=== PATIENT | male | born 1995 | race Caucasian/White ===

== ENCOUNTER 2020-10-31 12:55 | Emergency (ER) | payer OTHER, SELFPAY ==
[2020-10-31 13:53] VITALS: BP 116/63; PULSE 64; RESP 16; TEMP 36.8; O2SAT 98; BMI 29.2
[2020-10-31 15:04] LABS: COVID19 -Nasal RAPID Negative (Negative)
--- NOTE | 2020-10-31 15:11 | ED_ITS ---
HPI - Recheck/Abnormal Lab/Rx <Stephani Long PA-C - Last Filed: 11/04/20 09:09> General Chief Complaint: Recheck/Abnormal Lab/Rx Stated Complaint: Possible Exp to COVID, Wants Test, No Symptoms Time Seen by Provider: 10/31/20 14:00 Source: patient Mode of arrival: Ambulatory Limitations: no limitations History of Present Illness HPI narrative: 25 yo M presents to ED for COVID testing. States he was hanging out with some friends 5 days ago and recently found out that one of their associates tested positive for COVID. They are also getting tested but have no symptoms. He states he came to the ED because he thought it would be faster than testing at the drug store. He denies any symptoms including headaches, sore throat, cough, shortness of breath, N/V/D, fevers, chills, loss of sense or taste or smell. He states he has been in his normal state of health. Review of Systems <Stephani Long PA-C - Last Filed: 11/04/20 09:09> Review of Systems ROS Unobtainable: All systems reviewed & are unremarkable except as noted in HPI and below Patient History <Stephani Long PA-C - Last Filed: 11/04/20 09:09> Social History Smoking Status: Never smoker Smoking Status: Never smoker alcohol intake frequency: 0-2 drinks per day Substance Use Type: does not use Exam <Stephani Long PA-C - Last Filed: 11/04/20 09:09> Narrative Exam Narrative: GENERAL: [25] year old patient appears stated age. Well-nourished, well- developed patient, in no apparent distress. HEAD: Atraumatic. Normocephalic. EYES: Pupils equal round and reactive. Extraocular motions intact. No scleral icterus. No injection or drainage. ENT: Nose without bleeding, purulent drainage. Throat without erythema, tonsillar hypertrophy or exudate. Airway patent. No lymphadenopathy. NECK: Trachea midline. Non tender CARDIOVASCULAR: Regular rate and rhythm without murmurs, gallops, or rubs. RESPIRATORY: Clear to auscultation. Breath sounds equal bilaterally. No wheezes, rales, or rhonchi. EXTREMITIES: Normal active ROM all 4 extremities. NEURO: AOx3. SKIN: No rash or erythema of visible areas Initial Vital Signs Initial Vital Signs: Vital Signs Temperature 98.2 F 10/31/20 13:53 Pulse Rate 64 10/31/20 13:53 Respiratory Rate 16 10/31/20 13:53 Blood Pressure 116/63 10/31/20 13:53 Pulse Oximetry 98 10/31/20 13:53 <Bruce Rice DO - Last Filed: 11/04/20 13:23> Initial Vital Signs Initial Vital Signs: Vital Signs Temperature 98.2 F 10/31/20 13:53 Pulse Rate 64 10/31/20 13:53 Respiratory Rate 16 10/31/20 13:53 Blood Pressure 116/63 10/31/20 13:53 Pulse Oximetry 98 10/31/20 13:53 Course <Stephani Long PA-C - Last Filed: 11/04/20 09:09> Orders Ordered: ED Orders 10/31/20 13:58 COVID19 -Nasal swab/Pre-Proc Stat Vital Signs Vital signs: Vital Signs - 8 hr 10/31/20 13:53 10/31/20 15:17 Temperature 98.2 F Pulse Rate 64 65 Respiratory Rate 16 16 Blood Pressure 116/63 114/62 Pulse Oximetry 98 99 <DO Marcos Mead Last Filed: 11/04/20 13:23> Orders Ordered: ED Orders 10/31/20 13:58 COVID19 -Nasal swab/Pre-Proc Stat Vital Signs Vital signs: Vital Signs - 8 hr 10/31/20 13:53 10/31/20 15:17 Temperature 98.2 F Pulse Rate 64 65 Respiratory Rate 16 16 Blood Pressure 116/63 114/62 Pulse Oximetry 98 99 MDM - Recheck/Abnormal Lab/Rx <Stephani Long PA-C - Last Filed: 11/04/20 09:09> Differential Diagnosis Differential diagnosis: Likely other (encounter for COVID test, possible exposure to COVID, asymptomatic) Medical Records Attestation: I reviewed the patient's medical records. Lab Data Attestation: I reviewed the patient's lab results. Labs: Lab Results 10/31/20 Range/Units 13:58 SARS-CoV-2 (PCR) Negative (Negative) MDM Narrative Medical decision making narrative: 25 yo M who is asymptomatic presents with concern for possible COVID exposure 5 days ago and wanting COVID test. COVID rest returns negative, pt advised to quarantine if he does develop symptoms. Return precautions provided, all questions answered, follow up plan discussed. <Bruce Rice DO - Last Filed: 11/04/20 13:23> Lab Data Labs: Lab Results 10/31/20 Range/Units 13:58 SARS-CoV-2 (PCR) Negative (Negative) Discharge Plan Departure Patient Disposition: Home Clinical Impression: Exposure to 2019 novel coronavirus Activity Restrictions/Additional Instructions: Thank you for letting us be part of your care in the emergency department today. Your COVID test was negative. In the future if you have an exposure or a suspected exposure please remember that there are tests available at the drugstore by scheduled appointment or you can get [id number] test. If you are having symptoms of course it makes sense to be evaluated but if you do not have any symptoms and you just looking for test there are other options besides the emergency department. If you do develop symptoms of an upper respiratory infection please make sure that your quarantine so you do not get other people sick. Please call the office for an appointment. Please return to the Emergency Department for any worsening or persistent symptoms. Please take medications as directed. Referrals: Obey Montana MD [Primary Care Provider] - <Bruce Rice DO - Last Filed: 11/04/20 13:23> [facility] I was immediately available in the department for consultation. This documentation has been reviewed and I agree with assessment and plan. Supervised by Bruce Rice DO
[2020-10-31 15:17] VITALS: BP 114/62; PULSE 65; RESP 16; O2SAT 99
--- NOTE | 2020-10-31 15:25 | PC.NURSE ---
Pt exposed to COVID 4 days ago,pt is vaccinated. Pt is having no sx.
== END 2020-10-31 16:05 | disposition home or self-care (01) ==
PROVIDERS: Emergency Medicine; Emergency Provider Student in an Organized Health Care Education/Training Program; Family Provider Pediatrics; PCP Pediatrics
DX: Z20.822 Contact with and (suspected) exposure to COVID-19 (principal)
CPT/HCPCS: 87635; 99282; C9803